=== PATIENT | male | born 1980 | race Two or more races ===

== ENCOUNTER 2017-07-16 08:33 | Emergency (ER) | payer OTHER ==
[~2017-07-16] VITALS: Ht 185.4 cm; Wt 103.0 kg
[2017-07-16 09:21] LABS: SOURCE URINE
[2017-07-16 09:26] LABS: APPEARANCE CLEAR ((CLEAR)); BILIRUBIN NEGATIVE; BLOOD NEGATIVE; COLOR YELLOW ((YELLOW)); GLUCOSE (STRIP) NEGATIVE; KETONES NEGATIVE; LEUKOCYTES NEGATIVE; NITRITE NEGATIVE; PROTEIN (STRIP) NEGATIVE; SPECIFIC GRAVITY 1.015 (1.000-1.030); UCUL ADDED? NO; UROBILINOGEN 0.2 MG/DL (0.2-1.0)
[2017-07-16 11:41] VITALS: BP 123/77
[2017-07-19 13:12] LABS: CHLAMYDIA TRACHOMATIS NEGATIVE; NEISSERIA GONORRHOEAE NEGATIVE
== END 2017-07-16 11:41 | disposition home or self-care (01) ==
LOC: EME 08:33
PROVIDERS: Emergency Medicine
DX: R30.0 Dysuria (principal)
CPT/HCPCS: 81003; 87491; 87591; 99281; 99284

== ENCOUNTER 2017-11-02 15:57 | Emergency (ER) | payer OTHER ==
[~2017-11-02] VITALS: Ht 185.4 cm; Wt 106.3 kg
[2017-11-02 17:17] LABS: HEMATOCRIT 40.7 % (38.0-50.0); HEMOGLOBIN 14.2 G/DL (12.5-16.6); MCHC 34.9 G/DL (30.0-36.0); MCV 83.2 FL (86-99); PLATELET COUNT 254 K/uL (156-360); RBC DIS.WIDTH-CV 12.1 % (11.8-14.6); RED BLOOD COUNT 4.89 M/uL (4.00-5.50); WHITE BLOOD COUNT 9.8 K/uL (4.1-10.2)
[2017-11-02 17:28] LABS: CHLORIDE 104 mEq/L (99-109); POTASSIUM 4.1 mEq/L (3.7-5.4)
[2017-11-02 17:29] LABS: SODIUM 139 mEq/L (136-147)
[2017-11-02 17:30] LABS: GLUCOSE 97 mg/dL (70-99)
[2017-11-02 17:34] LABS: CREATININE 0.8 mg/dL (0.6-1.3); GFR ESTIMATE (CALCULATED) > 59 mL/min/ (58.99-99999)
[2017-11-02 17:35] LABS: UREA NITROGEN (BUN) 13 mg/dL (9-23)
[2017-11-02] MEDS ORDERED: OMEPRAZOLE40 M1 PO (18:18)
[2017-11-02] MEDS ORDERED: VENTOLIN HFA18 GM IH (18:18)
[2017-11-02] MEDS ORDERED: ZITHROMAX Z-PA250 MG PO (18:18)
[2017-11-02 18:29] VITALS: BP 120/78
== END 2017-11-02 18:30 | disposition home or self-care (01) ==
LOC: EME 15:57
PROVIDERS: Nurse Practitioner Family
DX: J20.9 Acute bronchitis, unspecified (principal); K21.9 Gastro-esophageal reflux disease without esophagitis; Z86.19 Personal history of other infectious and parasitic diseases; Z72.0 Tobacco use
CPT/HCPCS: 71046; 80048; 85027; 85379; 93005; 94640; 99281; 99284